=== PATIENT | female | born 1965 | race Caucasian/White ===

== ENCOUNTER 2019-06-17 06:07 | Observation (INO) ==
[2019-06-17] MEDS ORDERED: CeFAZolin Syr 2,000MG/20 ML 2,000 MG/20 ML SYRINGE IVPB ONE (06:28)
[2019-06-17] MEDS ORDERED: Ringers Solution, Lactated 1,000 ML IVC SCH (06:30)
[2019-06-17] MEDS ORDERED: *HR* Succinylcholine 200 MG/10 ML VIAL IVP ONE (07:03)
[2019-06-17] MEDS ORDERED: Lidocaine -MPF 2% 2 ML VIAL ONE (07:03)
[2019-06-17] MEDS ORDERED: *HR* Midazolam HCl 2 MG/2 ML VIAL ONE (07:03)
[2019-06-17] MEDS ORDERED: *HR* Propofol 200 MG/20 ML VIAL IVP ONE (07:03)
[2019-06-17] MEDS ORDERED: *HR* FentaNYL (PF) 100 MCG/2 ML VIAL ONE (07:03)
[2019-06-17] MEDS ORDERED: *HR* Magnesium Sulfate 1 GM/2 ML VIAL ONE (07:09)
[2019-06-17] MEDS ORDERED: Dexmedetomidine HCl 400 MCG/100 ML MLS IVC ONE (07:11)
[2019-06-17] MEDS ORDERED: *HR* Methadone 10 MG TABLET PO ONE (07:13)
[2019-06-17] MEDS ORDERED: Famotidine 20 MG/2 ML VIAL IVP ONE (07:13)
[2019-06-17] MEDS ORDERED: Acetaminophen IV 1,000 MG/100 ML INFUS..BTL IVPB ONE (07:14)
[2019-06-17] MEDS ORDERED: Morphine Sulfate 2 MG/ML SYRINGE IVP PRN (07:25)
[2019-06-17] MEDS ORDERED: Ondansetron 4 MG/2 ML VIAL IVP ONE (07:25)
[2019-06-17] MEDS ORDERED: *HR* Labetalol 20 MG/4 ML SYRINGE IVP PRN (07:25)
[2019-06-17] MEDS ORDERED: *HR* Promethazine 25 MG/ML VIAL IVP PRN (07:25)
[2019-06-17] MEDS ORDERED: *HR* OxyCODONE Immed Rel 5 MG TABLET PO PRN ×3 (07:25→13:07)
[2019-06-17] MEDS ORDERED: Bacitracin 50,000 UNIT, Polymyxin B Sulfate 500,000 UNIT, Sodium Chloride IRRigation 1,... IR ONE (07:45)
[2019-06-17] MEDS ORDERED: *HR* Phenylephrine 10 MG/ML VIAL ONE (08:50)
[2019-06-17] MEDS ORDERED: *HR* Methotrexate 2.5 MG TABLET PO SCH (12:28)
[2019-06-17] MEDS ORDERED: Nitroglycerin 0.4 MG TAB.SUBL SL PRN (12:28)
[2019-06-17] MEDS ORDERED: Naloxone 0.4 MG/ML INJ IVP PRN (12:28)
[2019-06-17] MEDS ORDERED: Ondansetron 4 MG/2 ML VIAL IVP PRN (12:28)
[2019-06-17] MEDS ORDERED: HYDROcodone BIT/Homatropine 5 MG TABLET PO PRN (13:02)
[2019-06-17] MEDS ORDERED: *HR* Dextrose 50 % in Water (Syg) 50 ML SYRINGE IVP PRN (13:06)
[2019-06-17] MEDS ORDERED: Dextrose Gel 15 GM/37.5 ML TUBE PO PRN ×2 (13:06)
[2019-06-17] MEDS ORDERED: D5% in Water 1,000 ML IVC PRN (13:06)
[2019-06-17] MEDS: Sucralfate 1 GM TABLET PO SCH ×3 (15:03→21:16)
[2019-06-17] MEDS: Ringers Solution, Lactated 1,000 ML IVC SCH (15:15)
[2019-06-17] MEDS: Insulin LISPRO 300 UNITS/3 ML VIAL SQ SCH ×2 (15:16→17:36)
[2019-06-17] MEDS ORDERED: diazePAM 5 MG TABLET PO PRN ×2 (15:33→15:38)
[2019-06-17] MEDS: HYDROcodone BIT/Homatropine 5 MG TABLET PO PRN ×2 (17:59→23:59)
[2019-06-17] MEDS: ceFAZolin 2,000 MG in 0.9 % Sodium Chloride 100 ML IVPB SCH (17:59)
[2019-06-17] MEDS ORDERED: traZODone 50 MG TABLET PO SCH (21:00)
[2019-06-18] MEDS: ceFAZolin 2,000 MG in 0.9 % Sodium Chloride 100 ML IVPB SCH
[2019-06-18] MEDS: Insulin LISPRO 300 UNITS/3 ML VIAL SQ SCH ×5 (00:08→23:57)
[2019-06-18] MEDS: Ringers Solution, Lactated 1,000 ML IVC SCH ×3 (03:01→20:05)
[2019-06-18] MEDS: Aspirin Enteric Coated 81 MG Tablet PO SCH (08:10)
[2019-06-18] MEDS: Famotidine 20 MG TABLET PO SCH (08:10)
[2019-06-18] MEDS: Sucralfate 1 GM TABLET PO SCH ×4 (08:10→20:03)
[2019-06-18] MEDS: Ascorbic Acid 500 MG TABLET PO SCH (08:10)
[2019-06-18] MEDS: Cholecalciferol (D-3) 1,000 UNIT (25MCG) TABLET PO SCH (08:10)
[2019-06-18] MEDS: Folic Acid 1 MG TABLET PO SCH (08:11)
[2019-06-18] MEDS ORDERED: Pantoprazole 40 MG VIAL IVP ONE (08:46)
[2019-06-18] MEDS ORDERED: Acetaminophen IV 500 MG/50 ML INFUS..BTL IVPB ONE (08:47)
[2019-06-18] MEDS ORDERED: BLACK COHOSH ROOT PO SCH (09:00)
[2019-06-18] MEDS ORDERED: Scopolamine Patch 1.5 MG PATCH.TD72 TD SCH (10:15)
[2019-06-18 10:22] LABS: Alanine Aminotransferase 13 Units/L (7-52); Albumin 3.1 g/dL (3.5-5.7); Albumin/Globulin Ratio 1.4 (1.1-2.2); Alkaline Phosphatase 54 Units/L (34-104); Aspartate Amino Transferase 33 Units/L (13-39); BUN/Creatinine Ratio 14 (6-26); Bilirubin,Total 0.5 mg/dL (0.3-1.0); Blood Urea Nitrogen 10 mg/dL (6-20); Calcium 8.5 mg/dL (8.6-10.3); Carbon Dioxide 29 mEq/L (23-29); Chloride 107 mEq/L (98-107); Globulin 2.2 g/dL (2.4-3.5); Glucose 101 mg/dL (70-105); Osmolality,Calculated 287 (280-300); Potassium 3.9 mEq/L (3.5-5.1); Sodium 139 mEq/L (136-145); Total Protein 5.3 g/dL (6.4-8.9); eGFR For African Americans > 60 (> 60); eGFR For Non-African Americans > 60 (> 60)
[2019-06-18] MEDS ORDERED: Metoclopramide 10 MG/2 ML VIAL IVP PRN (11:23)
[2019-06-18 11:55] LABS: Basophils % 0.3 %; Eosinophils % 0.4 %; Hematocrit 30.2 % (35.3-44.9); Hemoglobin 10.8 g/dL (11.5-15.4); Immature Granulocytes % 0.6 % (0-4); Immature Platelets 3.2 % (1.1-6.1); Lymphocytes # 2.6 K/mcL (0.6-4.6); Lymphocytes % 25.4 %; Mean Corpuscular HGB Conc 35.8 g/dL (31.6-35.5); Mean Corpuscular Hemoglobin 39.4 pg (28.0-33.3); Mean Corpuscular Volume 110.2 fL (83.0-100.0); Mean Platelet Volume 11.1 fL (9.4-12.4); Monocytes # 0.7 K/mcL (0.0-1.3); Monocytes % 6.9 %; Neutrophils # 6.7 K/mcL (1.6-8.9); Platelet Count 210 K/mcL (140-400); Red Blood Count 2.74 M/mcL (3.82-4.97); Segmented Neutrophils % 66.4 %; White Blood Count 10.1 K/mcL (4.3-11.1)
[2019-06-18 12:09] LABS: Large Platelets Present (Not Present); Macrocytosis Present (Not Present); Platelet Estimate Normal (Normal)
[2019-06-18] MEDS: Metoprolol XL (24 HR) Succ 50 MG TAB.ER.24H PO SCH (14:44)
[2019-06-18] MEDS: Acetaminophen IV 1,000 MG/100 ML INFUS..BTL IVPB SCH ×2 (15:35→23:53)
[2019-06-19 02:42] LABS: BUN/Creatinine Ratio 17 (6-26); Blood Urea Nitrogen 11 mg/dL (6-20); Calcium 8.6 mg/dL (8.6-10.3); Carbon Dioxide 26 mEq/L (23-29); Chloride 105 mEq/L (98-107); Glucose 81 mg/dL (70-105); Osmolality,Calculated 284 (280-300); Potassium 3.7 mEq/L (3.5-5.1); Sodium 138 mEq/L (136-145); eGFR For African Americans > 60 (> 60); eGFR For Non-African Americans > 60 (> 60)
[2019-06-19 03:08] LABS: Basophils % 0.4 %; Eosinophils % 0.4 %; Hematocrit 26.2 % (35.3-44.9); Hemoglobin 10.7 g/dL (11.5-15.4); Immature Granulocytes % 0.3 % (0-4); Lymphocytes # 2.5 K/mcL (0.6-4.6); Lymphocytes % 22.5 %; Mean Corpuscular Hemoglobin 44.6 pg (28.0-33.3); Mean Corpuscular Volume 109.2 fL (83.0-100.0); Mean Platelet Volume 11.1 fL (9.4-12.4); Monocytes % 8.8 %; Platelet Count 171 K/mcL (140-400); Red Cell Distribution Width 19.5 % (11.5-14.5); Segmented Neutrophils % 67.6 %; White Blood Count 11.3 K/mcL (4.3-11.1)
[2019-06-19 03:10] LABS: Basophils # 0.1 K/mcL (0.0-0.2); Eosinophils # 0.1 K/mcL (0.0-0.6); Mean Corpuscular HGB Conc 40.8 g/dL (31.6-35.5); Neutrophils # 7.6 K/mcL (1.6-8.9)
[2019-06-19] MEDS: Ringers Solution, Lactated 1,000 ML IVC SCH (04:42)
[2019-06-19] MEDS: Insulin LISPRO 300 UNITS/3 ML VIAL SQ SCH ×3 (06:05→17:21)
[2019-06-19] MEDS: Metoprolol XL (24 HR) Succ 50 MG TAB.ER.24H PO SCH (08:54)
[2019-06-19] MEDS: Ascorbic Acid 500 MG TABLET PO SCH (08:54)
[2019-06-19] MEDS: Famotidine 20 MG TABLET PO SCH (08:54)
[2019-06-19] MEDS: Folic Acid 1 MG TABLET PO SCH (08:54)
[2019-06-19] MEDS: Sucralfate 1 GM TABLET PO SCH ×4 (08:54→19:40)
[2019-06-19] MEDS: Aspirin Enteric Coated 81 MG Tablet PO SCH (08:54)
[2019-06-19] MEDS: Cholecalciferol (D-3) 1,000 UNIT (25MCG) TABLET PO SCH (08:54)
[2019-06-19] MEDS: Acetaminophen IV 1,000 MG/100 ML INFUS..BTL IVPB SCH ×2 (08:55→17:35)
[2019-06-19] MEDS: Metoclopramide 10 MG/2 ML VIAL IVP SCH ×2 (12:40→17:34)
[2019-06-19] MEDS ORDERED: Sennosides 8.6 MG TABLET PO SCH (21:00)
[2019-06-20] MEDS: Metoclopramide 10 MG/2 ML VIAL IVP SCH ×3 (00:08→12:13)
[2019-06-20] MEDS: Acetaminophen IV 1,000 MG/100 ML INFUS..BTL IVPB SCH ×2 (00:08→12:04)
[2019-06-20] MEDS: Ringers Solution, Lactated 1,000 ML IVC SCH (01:32)
[2019-06-20 04:53] LABS: BUN/Creatinine Ratio 16 (6-26); Blood Urea Nitrogen 10 mg/dL (6-20); Calcium 8.5 mg/dL (8.6-10.3); Carbon Dioxide 29 mEq/L (23-29); Chloride 104 mEq/L (98-107); Glucose 90 mg/dL (70-105); Osmolality,Calculated 283 (280-300); Potassium 3.5 mEq/L (3.5-5.1); Sodium 137 mEq/L (136-145); eGFR For African Americans > 60 (> 60); eGFR For Non-African Americans > 60 (> 60)
[2019-06-20 05:29] LABS: Hemoglobin 10.3 g/dL (11.5-15.4); Immature Granulocytes % 0.4 % (0-4)
[2019-06-20 05:31] LABS: Basophils % 0.2 %; Eosinophils # 0.1 K/mcL (0.0-0.6); Eosinophils % 1.5 %; Hematocrit 22.6 % (35.3-44.9); Lymphocytes # 3.1 K/mcL (0.6-4.6); Lymphocytes % 37.9 %; Mean Corpuscular HGB Conc 45.6 g/dL (31.6-35.5); Mean Corpuscular Hemoglobin 50.7 pg (28.0-33.3); Mean Corpuscular Volume 111.3 fL (83.0-100.0); Mean Platelet Volume 11.3 fL (9.4-12.4); Monocytes % 12.5 %; Neutrophils # 3.9 K/mcL (1.6-8.9); Platelet Count 164 K/mcL (140-400); Red Blood Count 2.03 M/mcL (3.82-4.97); Red Cell Distribution Width 21.7 % (11.5-14.5); Segmented Neutrophils % 47.5 %; White Blood Count 8.1 K/mcL (4.3-11.1)
[2019-06-20 05:33] LABS: Anisocytosis 2+ (Not Present); Macrocytosis Present (Not Present); Platelet Estimate Normal (Normal)
[2019-06-20] MEDS: Insulin LISPRO 300 UNITS/3 ML VIAL SQ SCH ×3 (06:00→12:26)
[2019-06-20] MEDS ORDERED: Metoprolol XL (24 HR) Succ 25 MG TAB.ER.24H PO SCH (09:00)
[2019-06-20] MEDS: Sucralfate 1 GM TABLET PO SCH ×2 (09:34→12:12)
[2019-06-20] MEDS: Ascorbic Acid 500 MG TABLET PO SCH (09:34)
[2019-06-20] MEDS: Folic Acid 1 MG TABLET PO SCH (09:34)
[2019-06-20] MEDS: Aspirin Enteric Coated 81 MG Tablet PO SCH (09:34)
[2019-06-20] MEDS: Cholecalciferol (D-3) 1,000 UNIT (25MCG) TABLET PO SCH (09:34)
[2019-06-20] MEDS: Metoprolol XL (24 HR) Succ 50 MG TAB.ER.24H PO SCH (09:35)
[2019-06-20] MEDS ORDERED: methocarbamoL 500 MG TABLET PO PRN (10:41)
[2019-06-20 13:53] VITALS: BP 92/36
[2019-06-20] MEDS ORDERED: FLU Vac QV 19-20 (6Month+)/PF 0.5 ML SYRINGE IM ONE (14:58)
[2019-06-21] MEDS ORDERED: Cyanocobalamin (B-12) 1,000 MCG TABLET PO SCH (09:00)
== END 2019-06-20 15:35 | disposition home or self-care (01) ==
LOC: SAMDAY 06:07 → 3NENU 06:07
PROVIDERS: ADMIT Orthopaedic Surgery Orthopaedic Surgery of the Spine; ATTEND Orthopaedic Surgery Orthopaedic Surgery of the Spine